=== PATIENT | female | born 1955 | race African-American/Black ===

== ENCOUNTER 2021-05-29 15:20 | Emergency (ER) | payer SELFPAY ==
[~2021-05-29] VITALS: Ht 152.4 cm; Wt 59.0 kg
[2021-05-29 15:34] VITALS: BP 139/62
[2021-05-29] MEDS ORDERED: ONDANSETRON 4MG ODT PO ONE (16:15)
== END 2021-05-29 16:52 | disposition home or self-care (01) ==
LOC: ER 15:20
DX: T40.711A Poisoning by cannabis, accidental (unintentional), initial encounter (principal); E78.00 Pure hypercholesterolemia, unspecified; Z88.6 Allergy status to analgesic agent; Y92.9 Unspecified place or not applicable
CPT/HCPCS: 99283; Q0162